=== PATIENT | female | born 1995 | race Caucasian/White ===

== ENCOUNTER 2024-06-02 04:39 | Inpatient (IN) | payer BC ==
[2024-06-02] MEDS ORDERED: hydrALAZINE 20 MG/ML VIAL SLOW IVP PRN (04:57)
[2024-06-02] MEDS ORDERED: Lactated Ringer's 1,000 ML IV SCH (05:15)
[2024-06-02 05:30] VITALS: BMI 28.8
[2024-06-02 06:11] LABS: Bilirubin Neg (Negative); Blood, Urine 150 (Negative); Clarity Clear (Clear); Glucose, Urine (Dipstick) Normal (Negative); Ketone, Urine Negative (Negative); Leukocyte Negative (Negative); Nitrite Negative (Negative); Protein, Urine (Dipstick) Negative (Neg-Trace); Urobilinogen Normal mg/dL (Less than 2)
[2024-06-02 06:37] LABS: Bacteria/HPF Rare-Few HPF (None Seen); CAUTI Indications for Culture Pregnancy; RBC/HPF 21-50 HPF (0-3); Squamous Epithelial 0-3 HPF (0-3); WBC/HPF 0-3 HPF (0-3)
[2024-06-02 06:38] LABS: Urine Culture Reflex Yes Yes
[2024-06-02] MEDS: Betamet Acet/Betamet Na Ph 30 MG/5 ML VIAL IM SCH (09:30)
[2024-06-02] MEDS: Betamet Acet/Betamet Na Ph 30 MG/5 ML VIAL ONE (09:32)
[2024-06-02 09:58] LABS: Hematocrit 35.6 % (34.9-44.5); Hemoglobin 12.3 g/dL (12.0-15.5); Mean Corpuscular HGB CONC 34.6 g/dL (32.0-36.0); Mean Corpuscular Hemoglobin 30.6 pg (27.0-33.0); Mean Corpuscular Volume 88.6 fL (81.6-98.3); Mean Platelet Volume 11.8 fL (7.4-10.4); Platelet Count 217 10x3/uL (150-450); RBC Distribution Width 12.9 % (11.5-14.5); Red Blood Cell (RBC) Count 4.02 10x6/uL (3.90-5.03); White Blood Cell (WBC) Count 17.9 10x3/uL (3.5-10.5)
[2024-06-02] MEDS: hydrOXYzine Pamoate 25 mg Capsule PO SCH (10:29)
[2024-06-02] MEDS: Zolpidem Tartrate 5 MG TAB PO SCH (19:40)
[2024-06-02] MEDS: Fluconazole 100 MG TAB PO SCH (19:41)
== END 2024-06-03 12:45 | disposition home health service (06) | DRG 831 ==
LOC: CSHLD/OP 04:39 → CSHLD 08:54
PROVIDERS: ADMIT Obstetrics & Gynecology; ATTEND Obstetrics & Gynecology
DX: O34.13 Maternal care for benign tumor of corpus uteri, third trimester (principal); O44.53 Low lying placenta with hemorrhage, third trimester; O47.03 False labor before 37 completed weeks of gestation, third trimester; D25.9 Leiomyoma of uterus, unspecified; Z3A.33 33 weeks gestation of pregnancy; Z91.018 Allergy to other foods
CPT/HCPCS: 76819; 81001; 85027; 86850; 86900; 86901; 87086; 87480; 87510; 87660; 99285; J0702; Q0177

== ENCOUNTER 2024-06-13 17:37 | Day surgery (SDC) | payer BC ==
[2024-06-13] MEDS ORDERED: hydrALAZINE 20 MG/ML VIAL SLOW IVP PRN (18:16)
== END 2024-06-13 21:00 | disposition home or self-care (01) ==
LOC: CSHLD/OP 17:37
PROVIDERS: ATTEND Obstetrics & Gynecology
DX: O99.513 Diseases of the respiratory system complicating pregnancy, third trimester (principal); O44.53 Low lying placenta with hemorrhage, third trimester; J45.909 Unspecified asthma, uncomplicated; O34.13 Maternal care for benign tumor of corpus uteri, third trimester; Z98.890 Other specified postprocedural states; Z79.899 Other long term (current) drug therapy; Z3A.35 35 weeks gestation of pregnancy
CPT/HCPCS: 76815; 76819; 99282

== ENCOUNTER 2024-06-19 12:51 | Inpatient (IN) | payer BC ==
[2024-06-19] MEDS ORDERED: Methylergonovine 0.2 MG/ML VIAL IM PRN (13:20)
[2024-06-19] MEDS ORDERED: hydrALAZINE 20 MG/ML VIAL SLOW IVP PRN (13:20)
[2024-06-19] MEDS ORDERED: Diphenoxylate HCl/Atropine Tablet PO PRN ×2 (13:20)
[2024-06-19] MEDS ORDERED: Misoprostol 200 MCG TAB PR PRN (13:20)
[2024-06-19] MEDS ORDERED: Zolpidem Tartrate 5 MG TAB PO PRN (13:20)
[2024-06-19] MEDS ORDERED: Promethazine HCl 25 MG/ML VIAL IM PRN (13:20)
[2024-06-19] MEDS ORDERED: Carboprost 250 MCG/ML AMP IM PRN (13:20)
[2024-06-19] MEDS ORDERED: Ondansetron PF 4 MG/2 ML Vial IVP PRN (13:20)
[2024-06-19 13:28] VITALS: BMI 30.9
[2024-06-19] MEDS ORDERED: Lactated Ringer's 1,000 ML IV SCH (13:30)
[2024-06-19] MEDS ORDERED: Oxytocin 30 units/NS 500 ML 500 ML IV SCH (13:30)
[2024-06-19 14:20] LABS: Hemoglobin 12.6 g/dL (12.0-15.5); Mean Corpuscular HGB CONC 33.2 g/dL (32.0-36.0); Mean Corpuscular Hemoglobin 29.1 pg (27.0-33.0); Mean Corpuscular Volume 87.8 fL (81.6-98.3); Mean Platelet Volume 11.3 fL (7.4-10.4); Platelet Count 223 10x3/uL (150-450); RBC Distribution Width 13.2 % (11.5-14.5); Red Blood Cell (RBC) Count 4.33 10x6/uL (3.90-5.03)
[2024-06-19 14:52] LABS: HBsAg Index 0.18 S/CO (0-0.99); HIV (1/2) Antibody/Antigen Non-Reactive (NonReactive); HIV 1/2 INDEX 0.08 S/CO (<1.00); Hep B Surf Ag - L&D Non-Reactive S/CO (NonReactive); Syphilis Antibody Nonreactive (Nonreactive); Syphilis Antibody Index 0.03 S/CO (<1.00 Non-Reactive)
[2024-06-20] MEDS ORDERED: Bicitra 30 ML UDCUP PO PRN (00:01)
[2024-06-20] MEDS ORDERED: Famotidine/PF 20 mg/2ml Vial SLOW IVP PRN (00:01)
[2024-06-20] MEDS ORDERED: CEFAZOLIN 2 GM in Sodium Chloride 0.9% 100 ML IVPB SCH (07:00)
[2024-06-20] MEDS ORDERED: Ondansetron PF 4 MG/2 ML Vial IVP PRN ×3 (07:42→10:38)
[2024-06-20] MEDS ORDERED: fentaNYL 50 mcg/mL 1 mL Vial SLOW IVP PRN (07:42)
[2024-06-20] MEDS ORDERED: Naloxone HCl 0.4 mg/ml Vial IVP PRN ×2 (07:42)
[2024-06-20] MEDS ORDERED: Naloxone HCl 0.4 mg/ml Vial IV PRN (07:42)
[2024-06-20] MEDS ORDERED: Promethazine HCl 25 MG/ML VIAL IM PRN (07:42)
[2024-06-20] MEDS ORDERED: Meperidine HCl/PF 25 MG (1 mL) VIAL SLOW IVP PRN (07:42)
[2024-06-20] MEDS ORDERED: diphenhydrAMINE 50 MG/ML VIAL IVP PRN (07:42)
[2024-06-20] MEDS ORDERED: HYDROmorphone 0.5 MG/0.5 ML SYRINGE SLOW IVP PRN (07:42)
[2024-06-20] MEDS ORDERED: Moisturizing Cream (Eucerin) 113 GM JAR TOP PRN (07:42)
[2024-06-20] MEDS ORDERED: Communication Order-Pharmacy FS SCH (07:45)
[2024-06-20 10:16] LABS: Analyzer IN Cardio CS NICU; RapidComm Collect By OR NURSE
[2024-06-20 10:17] LABS: Analyzer IN Cardio CS NICU; RapidComm Collect By OR NURSE; pH (Cord, venous) 6.649 (7.250-7.350)
[2024-06-20] MEDS ORDERED: Methylergonovine 0.2 MG/ML VIAL IM PRN (10:38)
[2024-06-20] MEDS ORDERED: hydrALAZINE 20 MG/ML VIAL SLOW IVP PRN (10:38)
[2024-06-20] MEDS ORDERED: Misoprostol 200 MCG TAB PR PRN (10:38)
[2024-06-20] MEDS ORDERED: Oxytocin 30 units/NS 500 ML 500 ML IV SCH (10:45)
[2024-06-20] MEDS: Ondansetron PF 4 MG/2 ML Vial ONE (11:25)
[2024-06-20 11:27] LABS: Hematocrit 36.1 % (34.9-44.5); Hemoglobin 12.1 g/dL (12.0-15.5); Mean Corpuscular HGB CONC 33.5 g/dL (32.0-36.0); Mean Corpuscular Hemoglobin 29.4 pg (27.0-33.0); Mean Corpuscular Volume 87.8 fL (81.6-98.3); Mean Platelet Volume 11.6 fL (7.4-10.4); Platelet Count 166 10x3/uL (150-450); RBC Distribution Width 13.4 % (11.5-14.5); Red Blood Cell (RBC) Count 4.11 10x6/uL (3.90-5.03); White Blood Cell (WBC) Count 33.8 10x3/uL (3.5-10.5)
[2024-06-20 12:03] LABS: D-Dimer Test 23.56 mcg/mL (0.19-0.50); INR-International Normal Ratio 0.9; PTT 24.5 sec (22.0-33.0); Prothrombin Time 10.3 sec (9.5-12.1)
[2024-06-20] MEDS: Phytonadione Neonatal 1 MG/0.5 ML AMP ONE (20:37)
[2024-06-20] MEDS: Dexmedetomidine 200 MCG/2 ML VIAL ONE (20:37)
[2024-06-20] MEDS: Dexamethasone 10 MG/ML VIAL ONE (20:37)
[2024-06-20] MEDS: Erythromycin Base 0.5% Oint 1 GM TUBE ONE (20:37)
[2024-06-20] MEDS: Morphine PF 10 MG/10 ML VIAL ONE (20:37)
[2024-06-20] MEDS: Calcium Chloride 1 GM/10 ML Abboject SYRINGE ONE (20:38)
[2024-06-20] MEDS: Famotidine/PF 20 mg/2ml Vial ONE (20:38)
[2024-06-20] MEDS: Tranexamic Acid 1,000 MG/10 ML VIAL ONE ×2 (20:38→20:39)
[2024-06-20] MEDS: PHENYLEPHRINE-NS 100 MCG/ML 10 ML SYRINGE ONE ×2 (20:38)
[2024-06-20] MEDS: Oxytocin 10 UNITS/ML VIAL ONE ×2 (20:38)
[2024-06-20] MEDS: ePHEDrine Sulfate 50 MG/10 ML VIAL ONE (20:38)
[2024-06-20] MEDS: Ketorolac Tromethamine 30 MG (1 mL) VIAL ONE (20:38)
[2024-06-20] MEDS: Midazolam HCl 2 mg/2 ml Vial ONE (20:39)
[2024-06-20] MEDS: Methylergonovine 0.2 MG/ML VIAL ONE (20:39)
[2024-06-20] MEDS: Lactated Ringer's 1,000 ML IV SCH (20:39)
[2024-06-20] MEDS: CEFAZOLIN 2 GM in Sodium Chloride 0.9% 100 ML IVPB SCH (20:42)
[2024-06-20] MEDS: Ketorolac Tromethamine 30 MG (1 mL) VIAL IVP PRN (20:47)
[2024-06-20] MEDS: Ferrous Sulfate 325 MG TAB PO SCH (21:29)
[2024-06-21 03:13] LABS: Hematocrit 32.6 % (34.9-44.5); Hemoglobin 11.4 g/dL (12.0-15.5); Mean Corpuscular Volume 85.8 fL (81.6-98.3); Mean Platelet Volume 11.2 fL (7.4-10.4); Platelet Count 141 10x3/uL (150-450); RBC Distribution Width 14.5 % (11.5-14.5); White Blood Cell (WBC) Count 28.4 10x3/uL (3.5-10.5)
[2024-06-21] MEDS: Prenatal Vitamin 1 TAB PO SCH (07:37)
[2024-06-21 15:21] LABS: Hematocrit 30.4 % (34.9-44.5); Hemoglobin 10.8 g/dL (12.0-15.5)
[2024-06-21] MEDS: Boostrix 0.5 ML (Tdap) VIAL (>/=7 yrs of age) IM ONE (17:30)
[2024-06-21] MEDS: Simethicone Chewable 80 MG TAB PO PRN (20:28)
[2024-06-21] MEDS: Ibuprofen 800 MG TAB PO SCH (20:28)
[2024-06-21] MEDS: HYDROcodone/Acetaminophen 5/325 mg Tablet PO PRN (20:28)
[2024-06-21] MEDS: Milk Of Magnesia 30 ML UDCUP PO PRN (21:42)
[2024-06-21] MEDS: Docusate 100 MG CAP PO SCH (21:42)
[2024-06-22] MEDS: Bisacodyl 10 MG SUPP PR PRN (08:26)
[2024-06-22 11:25] VITALS: BP 110/65; TEMP 97.8
== END 2024-06-22 14:15 | disposition home or self-care (01) | DRG 786 ==
LOC: CSHLD 12:51 → CSHPP 06-21 14:44
PROVIDERS: ADMIT Obstetrics & Gynecology; ATTEND Obstetrics & Gynecology
PROC: 10D00Z1 Extraction of Products of Conception, Low, Open Approach (ICD-10-PCS; principal; 2024-06-20)
PROC: 0UB90ZZ Excision of Uterus, Open Approach (ICD-10-PCS; 2024-06-20)
DX: O34.13 Maternal care for benign tumor of corpus uteri, third trimester (principal); O44.33 Partial placenta previa with hemorrhage, third trimester; D62 Acute posthemorrhagic anemia; O72.2 Delayed and secondary postpartum hemorrhage; O32.1XX0 Maternal care for breech presentation, not applicable or unspecified; Z37.0 Single live birth; D25.9 Leiomyoma of uterus, unspecified; Z3A.35 35 weeks gestation of pregnancy; O99.03 Anemia complicating the puerperium
CPT/HCPCS: 36415; 36430; 51702; 82805; 85027; 85049; 85300; 85362; 85384; 85610; 85730; 86780; 86850; 86900; 86901; 87340; 87389; 88305; 88307; C1889; J1100; J1885; J2210; J2250; J2274; J2405; J2590; J3490; P9016